=== PATIENT | male | born 1975 | race Caucasian/White ===

== ENCOUNTER 2023-03-18 20:30 | Emergency (ER) | payer OTHER ==
[~2023-03-18] VITALS: Ht 172.7 cm; Wt 63.5 kg
[2023-03-18 20:52] LABS: BASOPHILS 1.2 % (0-2); EOSINOPHILS 0.4 % (0-6); HEMATOCRIT 35.2 % (35.0-50.0); HEMOGLOBIN 11.6 g/dL (12.0-18.0); LYMPHOCYTES 25.5 % (24-44); MCHC 32.9 g/dl (30-36); MONOCYTES 7.7 % (0-12); NEUTROPHILS 65.2 % (39-80); PLATELET COUNT 329 K/uL (140-440); RBC 4.29 M/ul (4.3-5.7); RDW 14.2 (10.5-15.0)
[2023-03-18 21:17] LABS: ACETAMINOPHEN 0 ug/mL (10-30); ALBUMIN 3.6 g/dL (3.4-5.0); ALBUMIN/GLOBULIN RATIO 1.16 (1.1-2.4); ALCOHOL, MEDICAL <3 ng/dL (<3); ALKALINE PHOSPHATASE 57 U/L (46-116); ALT (SGPT) 16 U/L (14-59); ANION GAP 12.3 (7-21); AST (SGOT) 15 U/L (15-37); BILIRUBIN, TOTAL 0.4 ng/dL (0.2-1.0); BUN/CREATININE RATIO 15.38 (6.0-28.6); CALCIUM 8.8 mg/dL (8.5-10.1); CARBON DIOXIDE 27 mmol/L (21-32); CHLORIDE 104 mmol/L (98-107); CREATININE, SERUM 1.04 mg/dL (0.70-1.30); GLOMERULAR FILTRATION RATE,EST 89 mL/min (>60); POTASSIUM 3.3 mmol/L (3.5-5.1); PROTEIN, TOTAL 6.7 g/dL (6.4-8.2); SALICYLATE 0.8 mg/dL (2.8-20.0); TSH, 3RD GENERATION 0.558 uIU/mL (0.358-3.740); UREA NITROGEN 16 mg/dL (7-18)
[2023-03-19 04:42] VITALS: BP 112/67
--- NOTE | 2023-03-19 06:37 | EKG ---
[facility] [address] [facility] [place], [place] [address] Signed Sinus tachycardia Otherwise normal ECG No previous ECGs available Confirmed by JAS METZ MD ([id number]) on 03/19/2023 6:37:34 AM Electronically Signed By: JAS METZ 03/19/23 0637 PATIENT NAME: BRITTANYJOSE Electrocardiogram DATE OF : 73 PHYSICIAN: JAS METZ REPORT #: [id number] REPORT IS CONFIDENTIAL AND NOT TO BE RELEASED WITHOUT AUTHORIZATION
== END 2023-03-19 04:42 | disposition home or self-care (01) ==
LOC: ED 20:30
PROVIDERS: Internal Medicine
DX: T43.651A Poisoning by methamphetamines accidental (unintentional), initial encounter (principal); R41.82 Altered mental status, unspecified
CPT/HCPCS: 36415; 71045; 80053; 80307; 84443; 85025; 93005; 93010; G0480; J2060; J7121